=== PATIENT | female | born 1965 | race Caucasian/White ===

== ENCOUNTER 2017-06-08 13:52 | Emergency (ER) | payer SELFPAY ==
--- NOTE | 2017-06-08 14:09 | ED.RN ---
called for ekg. 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 pt states pain to left side of chest this am. resolved now
== END 2017-06-08 14:05 | disposition left against medical advice (07) ==
LOC: ED 14:17
PROVIDERS: Emergency Provider Emergency Medicine
DX: R69 Illness, unspecified (principal)

== ENCOUNTER → 2022-03-05 | Outpatient (CLI) | payer OTHER, SELFPAY ==
[2022-03-14 17:14] LABS: HPV APTIMA, High Risk Negative (Negative)
== END | disposition home or self-care (01) ==
LOC: LABSPEC 16:28
PROVIDERS: PCP Family Medicine; Visit Provider Obstetrics & Gynecology
DX: Z12.4 Encounter for screening for malignant neoplasm of cervix (principal)
CPT/HCPCS: 87624; 88175; G0145

== ENCOUNTER → 2022-07-01 | Outpatient (CLI) | payer OTHER, SELFPAY ==
--- NOTE | 2022-07-01 12:41 | BI_ITS ---
MAMMOGRAPHY - BILATERAL SCREENING REASON FOR EXAM: Female, 56 years old. Routine annual screening examination. PERTINENT HISTORY: Non-contributory. TECHNIQUE: Digital bilateral breast tasia (3D mammographic acquisition) in the CC and MLO projections. 2-D mediolateral oblique (MLO) and craniocaudad (CC) views of both breasts were obtained. CAD: Full Field Digital Mammography with Computer Added Detection was performed. COMPARISON: Comparison is made with prior outside examination dated July 19, 2018 and July 12, 2014. FINDINGS: Breast Composition: The breasts are heterogeneously dense, which may obscure small masses. There are no dominant masses or suspicious calcifications. Stable benign appearing bilateral axillary lymph nodes. No other significant abnormalities are identified. There has been no significant change since the prior study. BI/SCRN MAMM (CAD)W/TASIA BILAT IMPRESSION: Stable bilateral screening mammogram. Yearly follow-up mammogram recommended. (A) ASSESSMENT CATEGORY: BIRADS Category 2: Benign. A letter regarding these results will be sent to the patient by the facility within 30 days. Approximately 10% of breast cancers are not detected by mammography. A normal mammogram should not delay biopsy of a clinically suspicious abnormality. [id number] Electronically Signed: Sven King MD at 14:56 EDT ,
== END | disposition home or self-care (01) ==
LOC: OPBI 12:39
PROVIDERS: PCP Family Medicine; Visit Provider Obstetrics & Gynecology
DX: Z12.31 Encounter for screening mammogram for malignant neoplasm of breast (principal)
CPT/HCPCS: 77063; 77067

== ENCOUNTER → 2024-03-16 | Outpatient (CLI) | payer BC, SELFPAY ==
--- NOTE | 2024-03-16 09:12 | BI_ITS ---
MAMMOGRAPHY - BILATERAL DIAGNOSTIC REASON FOR EXAM: Female, 58 years old. One week history of a palpable lump in the upper outer aspect of the right breast. PERTINENT HISTORY: Non-contributory. TECHNIQUE: Digital bilateral breast juanita (3D mammographic acquisition) in the CC and MLO projections. 2-D mediolateral oblique (MLO) and craniocaudad (CC) views of both breasts were obtained. CAD: Full Field Digital Mammography with Computer Added Detection was performed. COMPARISON: Comparison is made with prior study of July 01, 2022. FINDINGS: Breast Composition: The breasts are heterogeneously dense, which may obscure small masses. There is a 5.8 mm x 3.8 mm well-defined nodule in the deep central medial aspect of the right breast. No other significant abnormalities are identified. There has been no significant change since the prior study. BI/DIAG MAMM W/CAD, BILAT IMPRESSION: 5.8 mm x 3.8 mm well-defined nodule in the deep central medial aspect of the right breast. Sonographic correlation recommended for the palpable lump. ASSESSMENT CATEGORY: BIRADS Category 0: Incomplete. Need additional imaging evaluation. A letter regarding these results will be sent to the patient by the facility within 30 days. Approximately 10% of breast cancers are not detected by mammography. A normal mammogram should not delay biopsy of a clinically suspicious abnormality. Electronically Signed: Sven King MD at 10:25 EST ,
--- NOTE | 2024-03-16 09:12 | US_ITS ---
STUDY: ULTRASOUND BREAST - RIGHT REASON FOR EXAM: Female, 58 years old. Palpable lump in the right breast. TECHNIQUE: Axial and longitudinal images of the RIGHT breast were performed with a high resolution ultrasound transducer. # OF IMAGES: [id number] COMPARISON: Comparison is made with prior mammogram done earlier today. FINDINGS: RIGHT Breast: The upper lateral aspect of the right breast was examined with ultrasound. Incidental benign-appearing lymph node measuring 7 mm x 7 mm x 5 mm x 7 mm at the 9:00 position of the breast at 5 cm from the nipple. No other abnormality is seen. US/Breast Limited Unilateral IMPRESSION: Benign-appearing lymph node at the 9:00 position of the breast at 5 cm from the nipple. No other abnormality is seen. ASSESSMENT CATEGORY: BIRADS Category 2: Benign. A letter regarding these results will be sent to the patient by the facility within 30 days. Electronically Signed: Sven Kign MD at 15:34 EST ,
== END | disposition home or self-care (01) ==
PROVIDERS: PCP Family Medicine; Referring Provider Obstetrics & Gynecology; Visit Provider Obstetrics & Gynecology
DX: N63.10 Unspecified lump in the right breast, unspecified quadrant (principal)
CPT/HCPCS: 76642; 77062; 77066; G0279